=== PATIENT | male | born 1970 | race Caucasian/White ===

== ENCOUNTER 2017-07-22 19:05 | Emergency (ER) | payer SELFPAY ==
[~2017-07-22 19:05] MED LIST: ADVA100A INH; LEVA500T33 PO
[2017-07-22 19:08] VITALS: BP 156/102; PULSE 82; RESP 16; TEMP 98.4; O2SAT 98
[2017-07-22] MEDS ORDERED: ALBUAER3 INH (19:49)
--- NOTE | 2017-07-22 20:13 | PD ---
HPI Chief Complaint: Laceration/Skin Injury Time Seen by Provider: 20:00 Travel History International Travel<30 days: No Contact w/Intl Traveler<30days: No Traveled to known affect area: No History of Present Illness HPI 46-year-old male complains of laceration to the right thumb. Patient states that he accidentally cut his right thumb about 3 hours prior to arrival. Patient denies any other injury. Patient is up-to-date with TD booster. Patient was seen a local urgent care and referred the ED for evaluation. Patient denies any numbness of the extremity. Patient stated he is unable to extend his thumb at the IP joint. PFSH Past Medical History Asthma: Yes Cancer: No Cardiovascular Problems: No Diminished Hearing: No Endocrine: No Genitourinary: No Immune Disorder: No Musculoskeletal: No Neurologic: No Psychiatric: No Reproductive: No Respiratory: Yes Influenza Vaccination: No Past Surgical History Surgical History: No Previous Surgery Social History Alcohol Use: Yes (weekly) Tobacco Use: No Substance Use: No Allergies-Medications (Allergen,Severity, Reaction): Coded Allergies: No Known Allergies (Unverified , 07/22/17) Reported Meds & Prescriptions Reported Meds & Active Scripts Active Keflex (Cephalexin) 500 Mg Cap 500 Mg PO TID Reported Proair Hfa 8.5 GM Inh (Albuterol Sulfate) 90 Mcg/Act Aer 2 Puff INH Q4-6H PRN 108 mcg/actuation Advair Diskus Inh (Fluticasone-Salmeterol Inh) 100-50 Mcg/Blist Aer 1 Puff INH DAILY Rinse mouth after use. Review of Systems General / Constitutional: No: Fever Eyes: No: Visual changes HENT: No: Headaches Cardiovascular: No: Chest Pain or Discomfort Respiratory: No: Shortness of Breath Gastrointestinal: No: Abdominal Pain Genitourinary: No: Dysuria Musculoskeletal: No: Pain Skin: No Rash Neurologic: No: Weakness Psychiatric: No: Depression Endocrine: No: Polydipsia Hematologic/Lymphatic: No: Easy Bruising Physical Exam Narrative GENERAL: Well-nourished, well-developed patient. SKIN: Focused skin assessment warm/dry. HEAD: Normocephalic. EYES: No scleral icterus. No injection or drainage. NECK: Supple, trachea midline. No JVD or lymphadenopathy. CARDIOVASCULAR: Regular rate and rhythm without murmurs, gallops, or rubs. RESPIRATORY: Breath sounds equal bilaterally. No accessory muscle use. GASTROINTESTINAL: Abdomen soft, non-tender, nondistended. MUSCULOSKELETAL: No cyanosis, or edema. BACK: Nontender without obvious deformity. No CVA tenderness. Patient has 2 cm laceration dorsal aspect of the right thumb at the IP joint. Patient is unable to extend the right thumb at the IP joint. Sensory function distally intact. Good capillary refill. Distal end of the extensor tendon is visible. Unable to visualize the proximal end of the extensor tendon at the laceration site. Data Data Last Documented VS Vital Signs Date Time Temp Pulse Resp B/P (MAP) Pulse Ox O2 Delivery O2 Flow Rate FiO2 07/22/17 19:08 98.4 82 16 156/102 (120) 98 Orders Orders Finger ([id number]) (07/22/17 ) Cephalexin (Keflex) (07/22/17 21:00) Splint Or Brace Apply/Monitor (07/22/17 21:02) Ed Discharge Order (07/22/17 21:03) [facility] Medical Decision Making Medical Screen Exam Complete: Yes Emergency Medical Condition: Yes Interpretation(s) X-ray right thumb shows no acute bony injury. Differential Diagnosis Differential diagnosis including extensor tendon injury, laceration to right thumb. Narrative Course 46-year-old male with right thumb laceration at the IP joint and injury to the extensor tendon. Spoke with hand surgeon bonbon dipper. Patient will be follow-up with hand surgeon. Diagnosis Primary Impression: Right thumb laceration Additional Impression: Injury of extensor tendon of right hand Qualified Codes: S66.901A - Unspecified injury of unspecified muscle, fascia and tendon at wrist and hand level, right hand, initial encounter Patient Instructions: General Instructions Additional Instructions: Follow-up with hand surgeon as directed. Take medication as directed. Med/Other Pt SpecificInfo: Prescription(s) given Scripts Tramadol (Ultram) 50 Mg Tab 50 MG PO Q6H Y for PAIN, #10 TAB 0 Refills Prov: Gonzalez Henry MD 07/22/17 Cephalexin (Keflex) 500 Mg Cap 500 MG PO TID for Infection, #21 CAP 0 Refills Prov: Gonzalez Henry MD 07/22/17 Disposition: 01 DISCHARGE HOME Condition: Stable Gonzalez Henry MD Jul 22, 2017 20:13
--- NOTE | 2017-07-22 20:55 | RADRPT ---
EXAM DATE/TIME: 07/22/2017 19:20 [facility] COMPARISON: No previous studies available for comparison. INDICATIONS : Right hand, first digit laceration. Patient cut thumb on his washing machine. Patient unable to strai ghten finger. MEDICAL HISTORY : None. SURGICAL HISTORY : None. ENCOUNTER: Initial ACUITY: 1 day PAIN SCORE: 10/10 LOCATION: Right hand, first digit. FINDINGS: Examination of the first digit of the right hand demonstrates no evidence of fracture or dislocation. No radiopaque foreign bodies are seen. The soft tissues are intact. CONCLUSION: Unremarkable examination of the right first finger. Alexandro Avila MD on July 22, 2017 at 20:53 Board Certified Radiologist. This report was verified electronically.
[2017-07-22] MEDS ORDERED: CEPHALEXIN MONOHYDRATE 500 MG CAP PO ONE (21:00)
[2017-07-22] MEDS ORDERED: CEPH-460 PO (21:01)
--- NOTE | 2017-07-22 21:35 | PD ---
Physical Exam Date Seen by Provider: Jul 22, 2017 Time Seen by Provider: 21:32 Narrative Patient has a laceration over the dorsal aspect of the right thumb IP joint. This goes through the subcutaneous tissues through the extensor tendon. He is unable to extend his thumb at the IP joint. Data Data Last Documented VS Vital Signs Date Time Temp Pulse Resp B/P (MAP) Pulse Ox O2 Delivery O2 Flow Rate FiO2 07/22/17 19:08 98.4 82 16 156/102 (120) 98 Orders Orders Finger ([id number]) (07/22/17 ) Cephalexin (Keflex) (07/22/17 21:00) Splint Or Brace Apply/Monitor (07/22/17 21:02) Ed Discharge Order (07/22/17 21:03) [facility] Medical Record Reviewed: Yes Supervised Visit with JENNA: Yes Interpretation(s) Last 24 hours Impressions Finger X-Ray 07/22/17 0000 Signed Impressions: Service Date/Time: Saturday, July 22, 2017 19:20 - CONCLUSION: Unremarkable examination of the right first finger. Alexandro Avila MD Differential Diagnosis MDM: High Differential diagnoses: Fracture, sprain, strain, dislocation, contusion, neurovascular injury Narrative Course Patient's wound is closed with sutures. Is placed in a thumb splint in extension. Procedures Procedure Narrative LACERATION LOCATION: Right dorsal thumb over the IP joint LENGTH: 2 cm NUMBER OF STITCHES/LEANDRO: 5 REPAIR: The area of the laceration was prepped with Betadine and sterilely draped. The laceration was infiltrated with 1% lidocaine with Marcaine 0.5%. Digital block. The wound was copiously irrigated and explored without evidence of foreign body, or neurovascular injury. Patient has a complete laceration through the extensor tendon. There is a small arterial bleeder which has resolved. The wound was closed using 5-0 Prolene. This was a single layer repair. A sterile dressing was applied. The patient was advised to keep the dressing clean and dry. Patient tolerated the procedure well. Diagnosis Primary Impression: Right thumb laceration Additional Impression: Injury of extensor tendon of right hand Qualified Codes: S66.901A - Unspecified injury of unspecified muscle, fascia and tendon at wrist and hand level, right hand, initial encounter Patient Instructions: General Instructions Departure Forms: Tests/Procedures Additional Instruction: Follow-up with hand surgeon as directed. Take medication as directed. Scripts Cephalexin (Keflex) 500 Mg Cap 500 MG PO TID for Infection, #21 CAP 0 Refills Prov: Gonzalez Henry MD 07/22/17 Disposition: 01 DISCHARGE HOME Condition: Stable Erick Gutierrez Jul 22, 2017 21:35
[2017-07-22] MEDS ORDERED: TRAM50 PO (21:45)
== END 2017-07-22 21:47 | disposition home or self-care (01) ==
LOC: NEPD 19:05
DX: S61.011A Laceration without foreign body of right thumb without damage to nail, initial encounter (principal); S66.221A Laceration of extensor muscle, fascia and tendon of right thumb at wrist and hand level, initial encounter; J45.909 Unspecified asthma, uncomplicated; W45.8XXA Other foreign body or object entering through skin, initial encounter; Z79.899 Other long term (current) drug therapy
CPT/HCPCS: 12001; 73140